=== PATIENT | female | born 1985 | race Caucasian/White ===

== ENCOUNTER → 2023-05-28 11:04 | Outpatient (BNVA) | payer BC, MEDICAID, SELFPAY | PROVIDERS: Visit Provider Emergency Medicine | DX: N89.8 Other specified noninflammatory disorders of vagina (principal) | CPT/HCPCS: 81000; 87086; 87491; 87591 ==

== ENCOUNTER 2024-12-23 17:19 | Emergency (ER) | payer MEDICAID, SELFPAY ==
[2024-12-23 17:58] VITALS: BP 126/84; PULSE 78; RESP 18; TEMP 36.7; O2SAT 99; BMI 47.4
[2024-12-23 19:19] LABS: Bilirubin Urine Negative (Negative); Blood Urine Negative (Negative); Glucose Urine UA Negative (Normal); Ketones Urine Negative (Negative); Leukocyte Esterase Urine Negative (Negative); Nitrate Urine Negative (Negative); Protein Urine Negative (Negative); Specific Gravity, Urine 1.023 (1.005-1.030); Urine Appearance Clear (CLEAR); Urine Color Yellow (Yellow)
--- NOTE | 2024-12-23 19:19 | ED_ITS ---
HPI - Abdominal Pain 2 General: Chief Complaint: Abdominal Pain Stated Complaint: vomitting, upper abdominal pain Time Seen by Provider: 12/23/24 19:17 History of Present Illness: Hiwot Curtis, a patient with a history of , spinal fusion, appendectomy, and cancer removal, presents with abdominal pain, nausea, vomiting, and diarrhea that started on Thursday. The patient reports that her symptoms began with stomach discomfort, which she initially attributed to her work schedule. However, the condition worsened, leading her to call in sick to work, which she states is unusual for her. She experiences abdominal pain and pressure with every step she takes. The pain is exacerbated by eating, regardless of the type of food consumed. She had a barbecue at work today, where she ate a hamburger, beans, and fruit, which resulted in vomiting and diarrhea. Hiwot describes her bowel movements as initially being hard and difficult to pass, leading her to use a suppository provided by nurses at her workplace. This resulted in the passage of hard stool followed by profuse liquid diarrhea, which she colorfully describes as [place] with liquid . She has attempted to alleviate her symptoms with Gas-X and Dulcolax, but without significant improvement. The patient expresses concern about missing work and emphasizes that she rarely calls in sick. She states, I feel like shit and I can't afford to miss work, indicating the severity of her symptoms and their impact on her daily functioning. Hiwot also mentions that she is not wearing makeup and is smiling, but it ain't real, suggesting discomfort and distress. Hiwot reports a history of multiple abdominal surgeries, including a , partial spinal fusion involving abdominal access, appendectomy, cancer cell removal (performed laparoscopically), and surgery on her uterus and ovaries in high school over 20 years ago. Related Data Previous Rx's ?Medication ?Instructions ?Recorded clotrimazole 2 % vaginal cream 1 appful vaginal DAILY 3 days #21 06/03/23 (Clotrimazole 3 Day) grams azithromycin 250 mg tablet See Rx Instructions PO .COM PLEX #6 06/08/23 tabs prednisone 20 mg tablet 40 mg (2 x 20 mg) PO daily # 10 tabs 06/08/23 Allergies Allergy/AdvReac Type Severity Reaction Status Date / Time Penicillins Allergy Severe ALGY-Anaphy Verified 12/23/24 18:04 laxis divalproex sodium (From Allergy Unknown Verified 12/23/24 18:04 Depakote) Review of Systems 2 General: Reports: 10 or more systems reviewed and unremarkable except in HPI and below Physical Exam 2 Const: COMMON NORMALS: no acute distress, patient oriented x3, healthy appearing, alert and well nourished HENMT: COMMON NORMALS: normocephalic HEAD & SCALP: normocephalic Eye: COMMON NORMALS: EOMs intact bilaterally Neck/C-Spine: COMMON NORMALS: full ROM and supple Resp: COMMON NORMALS: normal respiratory effort, No retractions and clear to auscultation bilaterally AUSCULTATION: clear to auscultation bilaterally Cardio: COMMON NORMALS: regular rate, regular rhythm, No gallops present (Cardio) and No murmurs present (Cardio) RATE: regular rate RHYTHM: r egular rhythm GI: COMMON NORMALS: negative for non-tender (Generalized tenderness without rebound or guarding) Extremity: GENERAL: Yes normal exam except as noted Neuro: COMMON NORMALS: patient oriented x3 SENSORIUM/ORIENTATION: Yes alert Skin: COMMON NORMALS: no rashes or lesions noted GENERAL SKIN EXAM: no rashes or lesions noted Course 2 Vital Signs: Vital signs: Vital Signs Temperature 98.0 F 12/23/24 17:58 Pulse Rate 78 12/23/24 17:58 Respiratory Rate 20 H 12/23/24 20:27 Blood Pressure 126/84 12/23/24 17:58 Pulse Oximetry 99 12/23/24 17:58 Oxygen Delivery Me thod Room Air 12/23/24 17:58 MDM - Abdominal Pain Medical Decision Making Patient reports onset of symptoms on Thursday, including abdominal pain, nausea, vomiting, and diarrhea. Symptoms worsen with food intake. Patient has a history of multiple abdominal surgeries, including , appendectomy, and cancer removal, which increases risk for adhesions and potential bowel obstruction. Physical exam reveals diffuse abdominal tenderness, more pronounced in the upper quadrants. The patient's description of initial constipation followed by Sherry Menon with liquid after using a suppository raises concern for possible partial bowel obstruction with overflow diarrhea. However, acute gastroenteritis remains in the differential diagnosis given the persistent diarrhea and vomiting. Patient's abdominal CT was normal. Her initial set of labs were also normal with the exception of an elevated white count with elevated neutrophils. Given the diagnosis of gastroenteritis. Discussed outpatient management with conservative care at this point. Patient was agreeable to this. Return precautions were discussed and the patient was discharged home in good condition. Differential Diagnosis Likely abdominal pain, acute appendicitis, calculus of kidney, constipation, diverticulitis, gastroenteritis, pancreatitis and small bowel obstruction Lab Data 12/23/24 19:20 12/23/24 19:20 Labs/Radiology: Radiology Impressions Abdomen/Pelvis CT 12/23/24 20:07 IMPRESSION: No acute abnormality identified to explain patient's nausea and vomiting. In particular, there is no evidence of bowel obstruction. No visible gallbladder inflammatory change. Stomach appears postprandial without visible ulcer or mucosal enhancement. Laboratory Results WBC 15.06 10^3/uL (3.29-11.43) H 12/23/24 19:20 RBC 4.55 10^6/uL (3.85-5.65) 12/23/24 19:20 Hgb 12.10 g/dL (11.27-16.99) 12/23/24 19:20 Hct 39.5 % (36-47) 12/23/24 19:20 MCV 86.8 fl (85-98) 12/23/24 19:20 MCH 26.6 pg (27-33) L 12/23/24 19:20 MCHC 30.6 g/dL (30-55) 12/23/24 19:20 RDW 13.3 % (12.1-15.1) 12/23/24 19:20 Plt Count 447 10^3/cmm (157-399) H 12/23/24 19:20 MPV 9.8 fL (7.4-10.4) 12/23/24 19:20 Neut % (Auto) 69.8 % 12/23/24 19:20 Lymph % (Auto) 22.1 % 12/23/24 19:20 [place] % (Auto) 4.6 % 12/23/24 19:20 Eos % (Auto) 2.3 % 12/23/24 19:20 Baso % (Auto) 0.7 % 12/23/24 19:20 Neut # (Auto) 10.51 10^3/uL (1.8-7.7) H 12/23/24 19:20 Lymph # (Auto) 3.3 10^3/uL (0.8-4.8) 12/23/24 19:20 [place] # (Auto) 0.7 10^3/uL (0.2-0.9) 12/23/24 19:20 Eos # (Auto) 0.4 10^3/uL (0.0-0.8) 12/23/24 19:20 Baso # (Auto) 0.1 10^3/uL (0.0-0.1) 12/23/24 19:20 Nucleated RBC % (auto) 0 % 12/23/24 19:20 Nucleated RBCs # 0.0 /100WBC 12/23/24 19:20 Sodium 141 mmol/L (136-145) 12/23/24 19:20 Sodium Cancelled 12/23/24 19:20 Potassium 4.0 mmol/L (3.5-5.1) 12/23/24 19:20 Potassium Cancelled 12/23/24 19:20 Chloride 102 mmol/L (98-107) 12/23/24 19:20 Chloride Cancelled 12/23/24 19:20 Carbon Dioxide 26 mmol/L (22-29) 12/23/24 19:20 Carbon Dioxide Cancelled 12/23/24 19:20 Anion Gap 17.0 (5-19) 12/23/24 19:20 Anion Gap Cancelled 12/23/24 19:20 BUN 12 mg/dL (6-20) 12/23/24 19:20 BUN Cancelled 12/23/24 19:20 Creatinine 0.5 mg/dL (0.5-0.9) 12/23/24 19:20 Creatinine Cancelled 12/23/24 19:20 GFR Calculation 138.1 mL/min (90-130) H 12/23/24 19:20 GFR Calculation Cancelled 12/23/24 19:20 Glucose 82 mg/dL (65-115) 12/23/24 19:20 Glucose Cancelled 12/23/24 19:20 Calculated Osmolality 291 mOsm/kg (285-295) 12/23/24 19:20 Calculated Osmolality Cancelled 12/23/24 19:20 Calcium 9.0 mg/dL (8.5-10.5) 12/23/24 19:20 Calcium Cancelled 12/23/24 19:20 Total Bilirubin 0.2 mg/dL (0.15-1.2) 12/23/24 19:20 AST 14 U/L (0-32) 12/23/24 19:20 ALT 16 U/L (0-33) 12/23/24 19:20 Alkaline Phosphatase 127 U/L (35-105) H 12/23/24 19:20 Total Protein 7.6 g/dL (6.6-8.7) 12/23/24 19: Albumin 4.0 g/dL (3.5-5.2) 12/23/24 19: Globulin 3.6 g/dL (1.3-4.6) 12/23/24 19: Lipase 11 U/L (13-60) L 12/23/24 19:20 HCG, Qual Negative (Negative) 12/23/24 19:03 Urine Color Yellow (Yellow) 12/23/24 19:03 Urine Appearance Clear (CLEAR) 12/23/24 19: Urine pH 7.0 (5-7) 12/23/24 19: Ur Specific [place] 1.023 (1.005-1.030) 12/23/24 19: Urine Protein Negative (Negative) 12/23/24 19:03 Urine Glucose (UA) Negative (Normal) 12/23/24 19: Urine Ketones Negative (Negative) 12/23/24 19: Urine Blood Negative (Negative) 12/23/24 19:03 Urine Nitrate Negative (Negative) 12/23/24 19: Urine Bilirubin Negative (Negative) 12/23/24 19: Urine Urobilinogen 1.0 mg/dL (Negative) 12/23/24 19: Ur Leukocyte Esterase Negative (Negative) 12/23/24 19:03 Urine RBC 0-2 /hpf (0-2) 12/23/24 19:03 Urine WBC 0-5 /hpf (0-5) 12/23/24 19:03 Ur Squamous Epith Cells 0-5 /hpf (0-5) 12/23/24 19:03 Amorphous Sediment Not Reportable 12/23/24 19:03 Urine Bacteria None seen /hpf (NONE) 12/23/24 19:03 Hyaline Casts 1.21 /lpf 12/23/24 19:03 All radiology interpretation(s) finalized by discharge Discharge Plan Discharge Patient Disposition: Home Clinical Impression: Gastroenteritis Constipation Qualifiers: Constipation type: unspecified constipation type Qualified Code(s): K59.00 - Constipation, unspecified Condition: Stable Prescriptions: No Action azithromycin 250 mg tablet See Rx Instructions PO .COMPLEX Qty: 6 0RF Rx Instructions: For 250 mg dose pack: take 500 mg today (day 1), then 250 mg for 4 days (days 2-5) PO prednisone 20 mg tablet 40 mg PO daily Qty: 10 0RF Clotrimazole 3 Day 2 % cream 1 appful vaginal DAILY 3 Days Qty: 21 0RF Discharge Orders: Discharge ED (Routine); Ordered 12/23/24 Ordered By: Sea Weesh Discharge Diet: Advance as tolerated Discharge Activity: Increase activity as tolerated Patient Instructions: Constipation (ED), Gastroenteritis (ED), Opioid Safety, Pain Management Activity Restrictions/Additional Instructions: Please return to the emergency department with any new or worsening symptoms. Please follow with your primary care doctor for any persistent symptoms. Print Language: Georgian Coding Level of Care Code ED Driver/Refuse Collector for Dk Driscoll
[2024-12-23 19:24] LABS: Basophils # 0.1 10^3/uL (0.0-0.1); Basophils % 0.7 %; Eosinophils # 0.4 10^3/uL (0.0-0.8); Eosinophils % 2.3 %; Hematocrit 39.5 % (36-47); Lymphocytes # 3.3 10^3/uL (0.8-4.8); Lymphocytes % 22.1 %; Mean Corpuscular HGB Conc 30.6 g/dL (30-55); Mean Corpuscular Hemoglobin 26.6 pg (27-33); Mean Corpuscular Volume 86.8 fl (85-98); Mean Platelet Volume 9.8 fL (7.4-10.4); Monocytes # 0.7 10^3/uL (0.2-0.9); Monocytes % 4.6 %; Neutrophils # 10.51 10^3/uL (1.8-7.7); Neutrophils % 69.8 %; Nucleated Red Blood Cells % 0 %; Platelet Count 447 10^3/cmm (157-399); Red Blood Count 4.55 10^6/uL (3.85-5.65); Red Cell Distribution Width 13.3 % (12.1-15.1); White Blood Count 15.06 10^3/uL (3.29-11.43)
[2024-12-23 19:24] LABS: Add Urine Microscopic? YES; Bacteria Urine None Seen /hpf; Hyaline Casts Urine 1.21 /lpf; RBC Urine 0-2 /hpf (0-2); Squamous Epithelial Cell Urine 0-5 /hpf (0-5); WBC Urine 0-5 /hpf (0-5)
[2024-12-23 19:39] LABS: HCG Qualitative Urine. Negative (Negative)
[2024-12-23 19:57] LABS: Alanine Aminotransferase 16 U/L (0-33); Alkaline Phosphatase 127 U/L (35-105); Aspartate Amino Transferase 14 U/L (0-32); Blood Urea Nitrogen 12 mg/dL (6-20); Carbon Dioxide 26 mmol/L (22-29); Chloride 102 mmol/L (98-107); Creatinine Clr Calc Pharmacy 178.7484; Globulin 3.6 g/dL (1.3-4.6); Glomerular Filtration Rate 138.1 mL/min (90-130); Glucose 82 mg/dL (65-115); Lipase 11 U/L (13-60); Osmolality Calculated 291 mOsm/kg (285-295); Sodium 141 mmol/L (136-145); Total Bilirubin 0.2 mg/dL (0.15-1.2); Total Protein 7.6 g/dL (6.6-8.7)
--- NOTE | 2024-12-23 20:07 | CTR_ITS ---
PROCEDURE INFORMATION: Exam: CT Abdomen And Pelvis With Contrast Exam date and time: 12/23/2024 8:37 PM Age: 39 years old Clinical indication: Nausea and vomiting; Abdominal pain; Prior surgery; Surgery date: 6+ months; Surgery type: Lumbar fusion. Appy. Csection. Uterine ablation. C/O epigastric pain with n/v over the last several days. ; Additional info: Diffuse abdominal pain worse in the right upper quadrant TECHNIQUE: Imaging protocol: Computed tomography of the abdomen and pelvis with contrast. Radiation optimization: All CT scans at this facility use at least one of these dose optimization techniques: automated exposure control; mA and/or kV adjustment per patient size (includes targeted exams where dose is matched to clinical indication); or iterative reconstruction. Contrast material: OMNI 350; Contrast volume: 100 ml; Contrast route: INTRAVENOUS (IV); COMPARISON: No relevant prior studies available. RADIATION DOSE METRICS: Total DLP (mGy-cm): 1191.49 FINDINGS: Lungs: Clear basilar lung parenchyma. Pleural spaces: No pleural fluid. Heart: Normal heart size. Liver: Homogeneous low attenuation throughout the liver is compatible with fatty infiltration. Liver measures 17.6 cm in length. Gallbladder and biliary ducts: Postprandial gallbladder is contracted. No biliary tree dilation. No gallbladder inflammatory change or high density stones. Pancreas: No evidence of pancreatic edema or mass. Spleen: Spleen measures 10.3 cm in length. Adrenal glands: Normal configuration. Kidneys and ureters: Kidneys enhance symmetrically and demonstrate no evidence of mass, calculus, obstruction, or inflammation. Stomach and bowel: Postprandial stomach without visible ulcer or mucosal enhancement. Normal caliber small bowel. Distal colonic diverticulosis without evidence of acute diverticulitis. Appendix: Prior appendectomy. Intraperitoneal space: No free air. No significant fluid collection. Vasculature: Normal caliber arterial structures. Lymph nodes: No enlarged lymph nodes. Urinary bladder: Unremarkable as visualized. Reproductive: Physiologic appearance for age. Bones/joints: Prior lumbar fusion procedure. No evidence of hardware failure. No fracture or destructive lesion in the scan range. Soft tissues: Unremarkable. CT/CT abdomen pelvis w con* [id number] IMPRESSION: No acute abnormality identified to explain patient's nausea and vomiting. In particular, there is no evidence of bowel obstruction. No visible gallbladder inflammatory change. Stomach appears postprandial without visible ulcer or mucosal enhancement.
[2024-12-23 20:27] VITALS: RESP 20
[2024-12-23] MEDS: ketorolac 30 mg/mL INJ 15 MG IVP (20:27)
[2024-12-23] MEDS: morphine 4 mg/mL SDV 1 mL IVP (20:27)
[2024-12-23] MEDS: iohexol 350 mg/mL 500 mL Btl (per mL) IV (20:39)
[2024-12-23 22:35] VITALS: BP 130/82; PULSE 61; RESP 18; O2SAT 97
== END 2024-12-23 22:37 | disposition home or self-care (01) ==
PROVIDERS: Emergency Medicine; Emergency Provider General Practice
DX: K52.9 Noninfective gastroenteritis and colitis, unspecified (principal); K59.00 Constipation, unspecified
CPT/HCPCS: 36415; 74177; 80053; 81001; 81025; 83690; 85025; 96374; 96375; 99285; J1885; J2270